=== PATIENT | female | born 1985 | race Caucasian/White ===

== ENCOUNTER 2018-03-11 14:58 | Emergency (ER) | payer MEDICAID, OTHER, SELFPAY ==
[~2018-03-11] VITALS: Ht 162.6 cm; Wt 54.0 kg
[2018-03-11] MEDS ORDERED: PLEASE ENTER ALLERGIES MC SCH (15:30)
[2018-03-11] MEDS ORDERED: PLEASE ENTER HEIGHT AND WEIGHT MC SCH (15:30)
[2018-03-11] MEDS ORDERED: IBUPROFEN 200 MG TABLET PO ONE (15:30)
--- NOTE | 2018-03-11 15:59 | NUR ---
patient [place] where she was found to be lethargic. Patient previously refusing to verbalize, able to write on paper legibly and this RN acquiring assessment info this way. Patient has just started talking. VSS on room air, night monitor and continuous pulse ox in use. xray and rapid strep taken, motring 400 mg given per MAR, now by RN Sonia. Patient states that she "took a shit load of meth last night, I swallowed the bag, usually I shoot it." PA updated that patient is talking.
[2018-03-11] MEDS ORDERED: IBUPROFEN 200 MG TABLET ONE (16:00)
--- NOTE | 2018-03-11 16:15 | NUR ---
TASK RN: DISCUSSED POC WITH ERP. POC IS DC, WILL CANCEL DOA/UA ORDERS. PT OFF MONITORING AT THIS TIME AND IS UP TO DRESS SELF
--- NOTE | 2018-03-11 16:27 | NUR ---
TASK RN: DC EDUCATION PROVIDED BY LEROY Pierre RN. PT AMBULATORY TO DC WITH STEADY GATE.
[2018-03-11 16:28] VITALS: BP 118/79
== END 2018-03-11 16:29 | disposition home or self-care (01) ==
LOC: ED 16:20
DX: J02.8 Acute pharyngitis due to other specified organisms (principal); F15.10 Other stimulant abuse, uncomplicated; F13.10 Sedative, hypnotic or anxiolytic abuse, uncomplicated; F11.10 Opioid abuse, uncomplicated; F17.200 Nicotine dependence, unspecified, uncomplicated
CPT/HCPCS: 71045; 87081; 87880; 99284

== ENCOUNTER 2018-10-03 01:33 | Emergency (ER) | payer MEDICAID ==
--- NOTE | 2018-10-03 01:35 | NUR ---
NO ANSWER WHEN CALLED
== END 2018-10-03 01:48 ==
LOC: ED 01:47
DX: R52 Pain, unspecified (principal); Z53.21 Procedure and treatment not carried out due to patient leaving prior to being seen by health care provider

== ENCOUNTER 2018-10-03 01:48 | Outpatient (CLI) | payer MEDICAID ==
[~2018-10-03] VITALS: Ht 162.6 cm; Wt 79.5 kg
[2018-10-03 02:34] LABS: MICROSCOPIC AUTO
[2018-10-03 02:35] LABS: CULTURE INDICATED? YES
[2018-10-03 02:42] LABS: AMPHETAMINE SCREEN, URINE Negative (Negative); BARBITURATE SCREEN, URINE Negative (Negative); BENZODIAZEPINE SCREEN, URINE Negative (Negative); CANNABINOID SCREEN, URINE Negative (Negative); COCAINE SCREEN, URINE Negative (Negative); METHADONE SCREEN, URINE Negative (Negative); OPIATE SCREEN, URINE Negative (Negative)
== END 2018-10-03 03:20 | disposition home or self-care (01) ==
LOC: LDOP 01:48
PROVIDERS: ATTEND Obstetrics & Gynecology
DX: O26.892 Other specified pregnancy related conditions, second trimester (principal); R10.9 Unspecified abdominal pain; Z3A.27 27 weeks gestation of pregnancy
CPT/HCPCS: 80307; 81001; 87086; 99201; G0463

== ENCOUNTER 2020-07-06 08:34 | Emergency (ER) | payer MEDICAID ==
[~2020-07-06] VITALS: Ht 162.6 cm; Wt 49.1 kg
[2020-07-06] MEDS ORDERED: SODIUM CHLORIDE 0.9% 1,000ML IVBOLUS ONE (09:00)
[2020-07-06] MEDS ORDERED: METOCLOPRAMIDE 5 MG/ML, 2ML IVPush ONE (09:00)
[2020-07-06] MEDS ORDERED: KETOROLAC 30 MG/1 ML IVPush ONE (09:00)
[2020-07-06 09:13] LABS: BASOPHILS % (AUTO) 1 % (0-1); EOSINOPHILS % (AUTO) 0 % (1-7); LYMPHOCYTES % (AUTO) 22 % (22-44); MEAN CORPUSCULAR HEMOGLOBIN 32.1 pg (27.0-34.8); MEAN CORPUSCULAR HGB CONC 34.2 g/dL (32.4-35.8); MONOCYTES % (AUTO) 9 % (2-9); NEUTROPHILS % (AUTO) 69 % (42-75); PLATELET COUNT 244 x10^3/uL (130-400); RED BLOOD COUNT 4.71 x10^6/uL (3.82-5.3); RED CELL DISTRIBUTION WIDTH 12.5 % (9.6-15.2)
--- NOTE | 2020-07-06 09:14 | NUR ---
PT PRESENTS TO ED WITH C/O FLANK PAIN, PAINFUL URINATION, LLQ ABDOMINAL TENDERNESS X3 DAYS. PT ALSO STATES THEY DO NOT HAVE AN APPETITE AND THEY FEEL NAUSEOUS, DENIES VOMITTING. PT A&O, RESPS EVEN AND UNLABORED, VSS, NADN. PROVIDED INSTRUCTIONS FOR UA, SUPPLIES AT BEDSIDE.
[2020-07-06 09:16] LABS: MD NO
[2020-07-06 09:23] LABS: ALBUMIN 4.4 g/dL (3.4-5.0); ANION GAP 10 mmol/L (5-15); CALCIUM 9.2 mg/dL (8.5-10.1); CHLORIDE 108 mmol/L (98-107); CREATININE 0.66 mg/dL (0.55-1.02)
[2020-07-06] MEDS ORDERED: METOCLOPRAMIDE 5 MG/ML, 2ML ONE (09:33)
[2020-07-06] MEDS ORDERED: KETOROLAC 30 MG/1 ML ONE ×2 (09:33→10:30)
[2020-07-06 09:46] LABS: MICROSCOPIC INDICATED
--- NOTE | 2020-07-06 10:21 | NUR ---
PRECEPTOR RN NOTE: PIV ACCESS NOT ACHIEVED WITH ATTEMPT X 2. EDMD SAHM NOTIFIED. ORDER RECEIVED TO REPLACE IV MEDS WITH ODT ZOFRAN AND IM TORADOL, WELL PO FLUIDS. IV TO BE DEFERRED AT THIS TIME.
[2020-07-06] MEDS ORDERED: METOCLOPRAMIDE 10MG TABLET PO SCH (10:30)
[2020-07-06] MEDS ORDERED: KETOROLAC 30 MG/1 ML IM ONE (10:30)
[2020-07-06] MEDS ORDERED: METOCLOPRAMIDE 10MG TABLET ONE (10:30)
--- NOTE | 2020-07-06 10:45 | NUR ---
PT A&O, RESPS EVEN AND UNLABORED, NADN. MEDICATED PER ORDER, TOLERATED WELL. ALL MONITORS ATTACHED, CALL LIGHT IN REACH.
[2020-07-06] MEDS ORDERED: METOCLOPRAMIDE 10MG TABLET PO ONE (11:00)
[2020-07-06 11:36] VITALS: BP 102/69
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
== END 2020-07-06 11:59 | disposition home or self-care (01) ==
LOC: ED 09:42
DX: R11.2 Nausea with vomiting, unspecified (principal); E86.9 Volume depletion, unspecified; Z72.9 Problem related to lifestyle, unspecified; F17.210 Nicotine dependence, cigarettes, uncomplicated
CPT/HCPCS: 36415; 80048; 81001; 82040; 84703; 85025; 87086; 96372; 99283; J1885; Q0181

== ENCOUNTER 2020-11-28 22:06 | Emergency (ER) | payer MEDICAID ==
[~2020-11-28] VITALS: Ht 162.6 cm; Wt 55.0 kg
[2020-11-29 00:24] VITALS: BP 132/85
== END 2020-11-29 00:25 | disposition home or self-care (01) ==
LOC: ED 23:25
DX: S16.1XXA Strain of muscle, fascia and tendon at neck level, initial encounter (principal); R56.9 Unspecified convulsions; F17.200 Nicotine dependence, unspecified, uncomplicated; Z88.8 Allergy status to other drugs, medicaments and biological substances; X58.XXXA Exposure to other specified factors, initial encounter; Y93.89 Activity, other specified; Y92.89 Other specified places as the place of occurrence of the external cause; Y99.8 Other external cause status